=== PATIENT | male | born 1995 | race Two or more races ===

== ENCOUNTER 2022-05-23 14:58 | Emergency (ER) | payer MEDICAID, OTHER ==
[~2022-05-23] VITALS: Ht 170.2 cm; Wt 131.3 kg
[2022-05-23 16:17] VITALS: BP 120/64
[2022-05-23] MEDS ORDERED: KETOROLAC TROMETH 30 MG/ML 1ML VIAL IM ONE (16:45)
[2022-05-23] MEDS ORDERED: IBUP600T28 PO (16:46)
== END 2022-05-23 17:23 | disposition home or self-care (01) ==
LOC: ER 14:58
DX: S83.91XA Sprain of unspecified site of right knee, initial encounter (principal); Z79.1 Long term (current) use of non-steroidal anti-inflammatories (NSAID); X58.XXXA Exposure to other specified factors, initial encounter; Y93.89 Activity, other specified; Y92.89 Other specified places as the place of occurrence of the external cause; Y99.8 Other external cause status
CPT/HCPCS: 73562; 96372; 99283; J1885

== ENCOUNTER 2022-11-10 17:58 | Emergency (ER) | payer MEDICAID ==
[~2022-11-10 17:58] MED LIST: AMOX500T3 PO; IBUP1TAB5 PO
[2022-11-10] MEDS ORDERED: MECLIZINE HCL 25 MG TAB PO ONE (18:15)
[2022-11-10] MEDS ORDERED: SODIUM CHLORIDE 0.9% 1,000 ML IV ONE (18:30)
[2022-11-10 18:34] LABS: Basophils # (auto) 0.1 10 ^3/uL (0-0.2); Basophils % (auto) 0.8 % (0.0-2.0); Eosinophils # (auto) 0.1 10 ^3/uL (0-0.8); Eosinophils % (auto) 1.1 % (0.0-7.0); Hematocrit 45.8 % (41.0-53.0); Hemoglobin 15.7 g/dL (13.5-17.5); Lymphocytes # (auto) 1.3 10 ^3/uL (0.4-5.4); Lymphocytes % (auto) 9.7 % (10.0-50.0); Mean Corpuscular Hemoglobin 28.9 pg (28.0-32.0); Mean Corpuscular Hgb Conc. 34.4 g/dL (32.0-36.0); Mean Corpuscular Volume 84.1 fL (80.0-100.0); Monocytes # (auto) 0.7 10 ^3/uL (0-1.3); Monocytes % (auto) 4.8 % (0.0-12.0); Neutrophils # (auto) 11.6 10 ^3/uL (1.6-8.6); Neutrophils % (auto) 83.6 % (37.0-80.0); Nucleated Red Blood Cells % 0.2 %; Red Blood Cells 5.45 10^6/uL (4.5-5.90); Red Cell Distribution Width 13.1 % (11.8-14.3); White Blood Cell 13.9 10^3/uL (4.4-10.8)
[2022-11-10 19:02] LABS: Alanine Aminotransferase 44 U/L (7-40); Albumin 4.4 g/dL (3.2-4.8); Alkaline Phosphatase 96 U/L (46-116); Aspartate Aminotransferase 28 U/L (13-40); BUN/Creatinine Ratio 16.5 (10.0-20.0); Blood Urea Nitrogen 13 mg/dL (9-23); Glucose 229 mg/dL (74-106); Lipase 31 U/L (12-53)
[2022-11-10 19:03] LABS: Bilirubin, Total 0.9 mg/dL (0.2-1.0)
[2022-11-10 19:08] LABS: Chloride 98 mmol/L (98-107); Potassium 4.7 mmol/L (3.5-5.1); Sodium 131 mmol/L (136-145)
[2022-11-10 19:11] LABS: Anion Gap 9 (5-15)
[2022-11-10 19:12] LABS: Carbon Dioxide 24 mmol/L (20-30)
[2022-11-10 19:13] LABS: Calcium 9.3 mg/dL (8.7-10.4)
[2022-11-10 19:27] LABS: COVID19 ANTIGEN SOFIA FIA NEGATIVE (NEGATIVE); Rapid Influenza A Negative (Negative); Rapid Influenza B Negative (Negative)
[2022-11-10 19:32] LABS: Lactic Acid w/Reflex 2.2 mmol/L (0.4-2.0)
[2022-11-10 19:45] VITALS: PULSE 112; RESP 15; O2SAT 94
[2022-11-10 20:00] VITALS: TEMP 98.4
[2022-11-10] MEDS ORDERED: IOHEXOL 350 MG/ML 100ML IJ ONE (20:45)
[2022-11-10 23:03] LABS: Urine Bacteria NONE SEEN /hpf (None Seen); Urine Blood Negative /uL (Negative); Urine Clarity Clear (Clear); Urine Color Yellow (Yellow); Urine Mucus FEW (None Seen); Urine Protein, UAD 1+ (Negative); Urine Urobilinogen Normal (Negative); Urine WBC 1 /hpf (0 - 3); Urine pH 5.5 (5.0-8.0)
[2022-11-10 23:04] LABS: Urine Specific Gravity > 1.050 (1.001-1.035)
[2022-11-10 23:11] LABS: Amphetamine Screen, Urine Neg (NEGATIVE); Barbiturate Scree,Urine Neg (NEGATIVE); Benzodiazephine Screen, Urine Neg (NEGATIVE); Cannabinoid Screen, Urine Neg (NEGATIVE); Cocaine Screen, Urine Neg (NEGATIVE); Opiate Scree,Urine Neg (NEGATIVE); Phencyclidine Screen, Urine Neg (NEGATIVE)
[2022-11-11] MEDS ORDERED: LORA-622 PO (00:23)
[2022-11-11] MEDS ORDERED: MECL1TAB32 PO (00:23)
[2022-11-11] MEDS ORDERED: DOXY-286 PO (00:23)
[2022-11-11] MEDS ORDERED: DOXYCYCLINE 100 MG TAB/CAP PO ONE (00:30)
[2022-11-11 01:34] VITALS: BP 148/92; PULSE 91; RESP 12; O2SAT 96
== END 2022-11-11 01:42 | disposition home or self-care (01) ==
LOC: ER 17:58
DX: J32.9 Chronic sinusitis, unspecified (principal); R42 Dizziness and giddiness; Z79.1 Long term (current) use of non-steroidal anti-inflammatories (NSAID); Z79.2 Long term (current) use of antibiotics; Z79.899 Other long term (current) drug therapy; Z20.822 Contact with and (suspected) exposure to COVID-19
CPT/HCPCS: 36415; 70450; 71250; 71275; 74176; 80053; 80307; 81001; 83605; 83690; 83880; 84484; 85025; 85379; 87040; 87426; 87804; 93005; 96360; 99285; J7030; J8597; Q9967

== ENCOUNTER 2023-06-02 01:12 | Emergency (ER) | payer MEDICAID, OTHER ==
[~2023-06-02] VITALS: Ht 167.6 cm; Wt 120.0 kg
[~2023-06-02 01:12] MED LIST changes: +DOXY-286 PO; +LORA-622 PO; +MECL-90 PO
[2023-06-02 01:44] LABS: Basophils # (auto) 0.1 10 ^3/uL (0-0.2); Basophils % (auto) 0.9 % (0.0-2.0); Eosinophils # (auto) 0.1 10 ^3/uL (0-0.8); Hemoglobin 15.7 g/dL (13.5-17.5); Lymphocytes # (auto) 2.9 10 ^3/uL (0.4-5.4); Lymphocytes % (auto) 29.2 % (10.0-50.0); Mean Corpuscular Hemoglobin 28.8 pg (28.0-32.0); Mean Corpuscular Hgb Conc. 34.1 g/dL (32.0-36.0); Mean Corpuscular Volume 84.4 fL (80.0-100.0); Monocytes # (auto) 0.6 10 ^3/uL (0-1.3); Monocytes % (auto) 5.7 % (0.0-12.0); Neutrophils # (auto) 6.3 10 ^3/uL (1.6-8.6); Neutrophils % (auto) 63.2 % (37.0-80.0); Red Blood Cells 5.44 10^6/uL (4.5-5.90); Red Cell Distribution Width 13.1 % (11.8-14.3); White Blood Cell 9.9 10^3/uL (4.4-10.8)
[2023-06-02 01:58] LABS: Alanine Aminotransferase 37 U/L (7-40); Albumin 4.5 g/dL (3.2-4.8); Alkaline Phosphatase 83 U/L (46-116); Anion Gap 4 (5-15); Aspartate Aminotransferase 17 U/L (13-40); BUN/Creatinine Ratio 18.9 (10.0-20.0); Blood Urea Nitrogen 14 mg/dL (9-23); Calcium 9.6 mg/dL (8.7-10.4); Carbon Dioxide 28 mmol/L (20-30); Chloride 104 mmol/L (98-107); Glucose 190 mg/dL (74-106); Magnesium 1.8 mg/dL (1.6-2.6); Potassium 4.1 mmol/L (3.5-5.1); Sodium 136 mmol/L (136-145)
[2023-06-02 01:59] LABS: Bilirubin, Total 0.7 mg/dL (0.2-1.0); Total Protein 7.7 g/dL (5.7-8.2)
[2023-06-02 02:00] LABS: INR 1.07 (0.9-1.15); Prothrombin Time 11.2 sec (9.3-11.8)
[2023-06-02] MEDS: IBUPROFEN 800 MG TAB PO ONE (05:20)
[2023-06-02] MEDS: ACETAMINOPHEN 500 MG TAB PO ONE (05:21)
[2023-06-02 05:23] VITALS: BP 125/71; PULSE 74; RESP 19; TEMP 97.7; O2SAT 97
== END 2023-06-02 05:25 | disposition home or self-care (01) ==
LOC: ER 01:12 → EDBD 01:12 → ER 05:25
DX: R07.9 Chest pain, unspecified (principal); R55 Syncope and collapse; R51.9 Headache, unspecified; X58.XXXA Exposure to other specified factors, initial encounter; Y93.89 Activity, other specified; Y92.69 Other specified industrial and construction area as the place of occurrence of the external cause; Y99.8 Other external cause status
CPT/HCPCS: 36415; 70450; 71045; 80053; 83735; 83880; 84484; 85025; 85379; 85610; 85730; 93005

== ENCOUNTER 2024-05-08 15:01 | Emergency (ER) | payer MEDICAID, OTHER ==
[~2024-05-08] VITALS: Ht 167.6 cm; Wt 127.8 kg
[2024-05-08 15:43] VITALS: BP 136/81; PULSE 94; RESP 18; TEMP 99; O2SAT 96
--- NOTE | 2024-05-08 16:30 | DVH ---
EXAM: XY CHEST XRAY 1 VIEW HISTORY: r/o pna COMPARISON: XY CHEST PORTABLE on DOS: 06/02/23, XY CHEST PORTABLE on DOS: 09/04/22 TECHNIQUE: Portable AP view of the chest was performed. FINDINGS: No pneumothorax, consolidative infiltrates, or pulmonary edema. The heart is not enlarged. IMPRESSION: No acute intrathoracic process.
[2024-05-08] MEDS ORDERED: AZIT-43 PO (16:47)
[2024-05-08] MEDS ORDERED: BENZ100C97 PO (16:47)
[2024-05-08] MEDS ORDERED: PROM1SOL4 PO (16:47)
--- NOTE | 2024-05-08 16:47 | ED.PDOC ---
SOB-HPI HPI Comments 29 M w/ no hx presents for URI symptoms Not taking medications at this time Denies fevers chills night sweats unintentional weight loss Denies persistent chest pain, shortness of breath, leg swelling Denies history of asthma nor any breathing conditions Denies history of pneumonia Denies recent international travel Chief Complaint: Cough Time Seen by MD: 15:30 Primary Care Provider: FAMILY Reviewed notes: Nurses Notes, Medications, Allergies Information Source: Patient Mode of Arrival: Ambulatory Past Medical History PAST MEDICAL HISTORY: Denies Surgical History: Denies all surgeries Family History Family History: Reviewed,noncontributory to illness Social History Smoker: Non-Smoker Alcohol: Denies ETOH Use Drugs: Denies Drug Use Lives In: Home All Other Systems: Reviewed and Negative (Per HPI) Physical Exam General Appearance: No Apparent Distress, Normal HEENT: Normal ENT Inspection, Pharynx Normal, TMs Normal Neck: Full Range of Motion, Non-Tender, Normal, Normal Inspection Respiratory: Chest Non-Tender, Lungs Clear, No Accessory Muscle Use, No Respiratory Distress, Normal Breath Sounds Cardiovascular: No Murmur, No Gallop, Regular Rate/Rhythm Breast Exam: Deferred Gastrointestinal: No Organomegaly, Non Tender, No Pulsatile Mass, Normal Bowel Sounds, Soft Genitalia: Deferred Pelvic: Deferred Rectal: Deferred Extremities: No calf tenderness, Normal capillary refill, Normal inspection, Normal range of motion, Non-tender, No pedal edema Musculoskeletal : Apperance: Normal Neurologic: Alert, No Motor Deficits, Normal Affect, Normal Mood, No Sensory Deficits Cerebellar Function: Normal Reflexes: Normal Skin: Dry, Normal Color, Warm Lymphatic: No Adenopathy Was a procedure done? Was a procedure done?: No Differential Dx Differential Diagnosis: URI X-Ray, Labs, Meds, VS Vital Signs Date Time Temp Pulse Resp B/P (MAP) Pulse Ox O2 Delivery O2 Flow Rate FiO2 05/08/24 15:43 94 18 96 Room Air 05/08/24 15:43 99.0 94 18 136/81 (99) 96 99.0 05/08/24 15:10 99.0 94 18 136/81 (99) 96 99.0 PATIENT: JAZMIN BURGESS: [id number]: [id number] : 1995 LOC: ER ROOM / BED: / AGE / SEX: 29 / M ADM STATUS: REG ER SERVICE [id number] ORDERING PHYSICIAN: ALEENA MEDLEY NP PROCEDURE(s): CXR1 - CHEST XRAY 1 VIEW REASON: r/o pna ORDER NUMBER(s): [id number], ACCESSION NUMBER(s): [id number] EXAM: XY CHEST XRAY 1 VIEW HISTORY: r/o pna COMPARISON: XY CHEST PORTABLE on DOS: 06/02/23, XY CHEST PORTABLE on DOS: 09/04/22 TECHNIQUE: Portable AP view of the chest was performed. FINDINGS: No pneumothorax, consolidative infiltrates, or pulmonary edema. The heart is not enlarged. IMPRESSION: No acute intrathoracic process. ATED BY: VIVIENNE BEAVERS MD DICTATED DATE/TIME: 05/08/241626 SIGNED BY: VIVIENNE BEAVERS MD SIGNED DATE/TIME: 05/08/241626 X-Ray, Labs, Meds, VS Comment The patient is overall well-appearing nontoxic on exam. On physical exam, respirations even and unlabored, clear to auscultation bilaterally. Oxygen stable on room air. Did not have any focal lung findings and therefore chest x-ray was not indicated during this exam Low suspicion of strep pharyngitis given physical exam findings and patient's presenting symptoms No signs of meningismus on exam Overall, the patient is well hydrated and nontoxic. Plan for symptomatic control as needed. The patient was able to tolerate p.o. intake in the ED. at this time, patient is safe for discharge home. The exam findings and plan discussed. We will discharge home with PCP follow up and strict return precautions. Discussed that cough can linger up to 6 weeks after viral URI Supportive care and return precautions discussed Recommended vitamin C, rest, handwashing, and symptomatic care. Expect 2-week course with possibly of cough lingering up to 6 weeks. Nonpharmacological remedies for fluids has been recommended as well Time of 1ST Reevaluation: 16:30 Reevaluation 1ST: Improved Patient Education/Counseling: Diagnosis, Treatment Family Education/Counseling: Diagnosis, Treatment Departure 1 Departure Time of Disposition: 16:46 Impression: Primary Impression: Bronchitis Disposition: 01 HOME / SELF CARE / HOMELESS Condition: Stable e-Prescriptions Benzonatate (Benzonatate) 100 Mg Cap 1 CAP PO TID for 10 Days, #30 CAP 0 Refills Prov: ALEENA MEDLEY NP 05/08/24 Promethazine-Dm (Promethazine Dm 6.25-15 mg/5Ml) 1 Helene Helene 5 ML PO TID for 10 Days, #150 ML 0 Refills Prov: ALEENA MEDLEY NP 05/08/24 Azithromycin (Azithromycin) 250 Mg Tab 250 MG PO DAILY MDD 500 for 5 Days, #6 TAB 0 Refills 2 TABLETS ORALLY ON DAY ONE, THEN 1 TABLET ORALLY DAILY FOR 4 DAYS Prov: ALEENA MEDLEY NP 05/08/24 Critical Care Note Critical Care Time?: No Stability Stability form required: No Heart Score Heart Score: Heart Score Response (Comments) Value History N/A 0 EKG N/A 0 Age N/A 0 Risk Factors N/A 0 Troponin N/A 0 Total 0 ALEENA MEDLEY NP May 08, 2024 16:47
== END 2024-05-08 16:58 | disposition home or self-care (01) ==
LOC: ER 15:04
DX: J40 Bronchitis, not specified as acute or chronic (principal)
CPT/HCPCS: 71045

== ENCOUNTER 2024-08-05 19:15 | Emergency (ER) | payer MEDICAID ==
[~2024-08-05] VITALS: Ht 170.2 cm; Wt 126.1 kg
[~2024-08-05 19:15] MED LIST changes: +AZIT-43 PO; +BENZ100C97 PO; +PROM1SOL4 PO
[2024-08-05] MEDS ORDERED: CIPR1SUS8 RIGHT EAR (22:08)
[2024-08-05] MEDS ORDERED: AMOX875T4 PO (22:08)
[2024-08-05] MEDS ORDERED: IBUP-1456 PO (22:08)
--- NOTE | 2024-08-05 22:08 | ED.PDOC ---
Eye-HPI HPI Comments 29-year-old male presents to ER with complaints of right-sided earache pain x4 days. Patient reports he has been experiencing right-sided earache pain with associated decreased hearing from right ear x4 days. States that his symptoms started three days after he [place] a water park. He rates his current pain a 10/10 to right ear with radiation towards right side of jaw. Denies use of medications for current symptoms. Patient presents to ER ambulatory on arrival, with steady gait, in no distress, with vitals stable. Denies fever, ear drainage, skin changes, dizziness, nausea/vomiting, headache or any further symptoms/complaints Chief Complaint: Earache Time Seen by MD: 19:41 Primary Care Provider: FAMILY Reviewed Notes: Nurses Notes, Medications, Allergies Allergies: Coded Allergies: NO KNOWN ALLERGIES (Unverified , 05/23/22) Home Meds Active Scripts Ciprofloxacin-Dexamethasone (Ciprofloxacin/Dexamethaso 0.3-0.1 %) 1 Amber Amber, 4 D ROP RIGHT EAR BID for 7 Days, #1 BOTTLE 0 Refills Prov:KATHY MUNOZ 08/05/24 Ibuprofen (Ibuprofen) 800 Mg Tab, 1 TAB PO TID PRN, #30 TAB 0 Refills Prov:KATHY MUNOZ 08/05/24 Amoxicillin & Pot Clavulanate (Amoxicillin/Potassium Cla) 875 Mg Tab, 1 TAB PO BID for 7 Days, #14 TAB 0 Refills Prov:KATHY MUNOZ 08/05/24 Benzonatate (Benzonatate) 100 Mg Cap, 1 CAP PO TID for 10 Days, #30 CAP 0 Refills Prov:ALEENA MEDLEY NP 05/08/24 Promethazine-Dm (Promethazine Dm 6.25-15 mg/5Ml) 1 Helene Helene, 5 ML PO TID for 10 Days, #150 ML 0 Refills Prov:ALEENA MEDLEY NP 05/08/24 Azithromycin (Azithromycin) 250 Mg Tab, 250 MG PO DAILY MDD 500 for 5 Days, #6 TAB 0 Refills 2 TABLETS ORALLY ON DAY ONE, THEN 1 TABLET ORALLY DAILY FOR 4 DAYS Prov:ALEENA MEDLEY NP 05/08/24 Loratadine (Claritin) 10 Mg Tab, 1 TAB PO DAILY for 30 Days, #30 TAB 5 Refills Prov:DALE WHITE DO 11/11/22 Meclizine Hcl (Meclizine Hcl) 25 Mg Tab, 25 MG PO TIDPRN PRN for 10 Days, #30 TAB Prov:DALE WHITE S DO 11/11/22 Doxycycline Hyclate (DOXYCYCLINE HYCLATE) 100 Mg Tab, 1 TAB PO BID for 10 Days, #20 TAB Prov:DALE WHITE S DO 11/11/22 Amoxicillin Trihydrate (Amoxicillin) 500 Mg Tab, 1 TAB PO BID for 10 Days, #20 TAB Prov:EMETERIO BAUTISTA [facility] 09/04/22 Ibuprofen Micronized (Ibuprofen) 600 Mg Tab, 600 MG PO Q8HPRN PRN, #30 TAB 0 Refills Prov:ELLIS QUINTANA [facility] 05/23/22 Information Source: Patient Mode of Arrival: Ambulatory Past Medical History PAST MEDICAL HISTORY: Denies Surgical History: Denies all surgeries Family History Family History: Unknown Social History Smoker: Non-Smoker Alcohol: Denies ETOH Use Drugs: Denies Drug Use Lives In: Home Constitutional: denies: chills, diaphoresis, fatigue, fever, malaise, sweats, weakness, others EENTM: reports: others (As stated in HPI) Respiratory: denies: cough, hemoptysis, orthopnea, SOB at rest, shortness of breath, SOB with excertion, stridor, wheezing, others Cardiovascular: denies: chest pain, dizzy spells, diaphoresis, Dyspnea on exe rtion, edema, irregular heart beat, left arm pain, lightheadedness, palpitations, PND, syncope, others Gastrointestinal: denies: abdomen distended, abdominal pain, blood streaked bowels, constipated, diarrhea, dysphagia, difficulty swallowing, hematemesis, melena, nausea, poor appetite, poor fluid intake, rectal bleeding, rectal pain, vomiting, others Genitourinary: denies: burning, dysuria, flank pain, frequency, hematuria, incontinence, penile discharge, penile sore, pain, testicle pain, testicle swelling, urgency, others Neurological: denies: dizziness, fainting, headache, left sided numbness, left sided weakness, numbness, paresthesia, pre-existing deficit, right sided numbness, right sided weakness, seizure, speech problems, tingling, tremors, weakness, others Musculoskeletal: denies: back pain, gout, joint pain, joint swelling, muscle pain, muscle stiffness, neck pain, others Integumetry: denies: bruises, change in color, change in hair/nails, dryness, laceration, lesions, lumps, rash, wounds, others Allergic/Immunocompromised: denies: Difficulty Healing, Frequent Infections, Hives, Itching, others Hematologic/Lymphatic: denies: anemia, blood clots, easy bleeding, easy bruising, swollen glands, others Endocrine: denies: excessive hunger, excessive sweating, excessive thirst, excessive urination, flushing, intolerance to cold, intolerance to heat, unexplained weight gain, unexplained weight loss, others Psychiatric: denies: anxiety, bipolar disorder, depression, hopeless, panic disorder, schizophrenia, sleepless, suicidal, others Physical Exam General Appearance: No Apparent Distress HEENT: PERRL/EOMI, Pharynx Normal, Other (Mild swelling/erythema/yellow purulent drainage noted in right middle ear canal, unable to visualize right TM due to yellow purulent drainage, no TTP to right mastoid process noted, no skin changes to right ear noted, slight decreased whispered hearing noted to right ear. Ear exam on left-normal) Neck: Full Range of Motion, Non-Tender, Normal Respiratory: Chest Non-Tender, Lungs Clear, No Accessory Muscle Use, No Respiratory Distress, Normal Breath Sounds Cardiovascular: No Murmur, No Gallop, Regular Rate/Rhythm Breast Exam: Deferred Gastrointestinal: NOT DONE Genitalia: Deferred Pelvic: Deferred Rectal: Deferred Extremities: Normal capillary refill, Normal range of motion Neurologic: Alert, clinical rn liaison II-XII nml as Tested, No Motor Deficits, Normal Affect, Normal Mood, No Sensory Deficits Cerebellar Function: Normal Reflexes: Normal Skin: Dry, Normal Color, Warm Lymphatic: No Adenopathy Was a procedure done? Was a procedure done?: No Sedation Sedation?: No EENT DIFF Eye: N/A Ear: Abrasion, Cerumen Impaction, Foreign Body, Otitis Media, Perforation X-Ray, Labs, Meds, VS Vital Signs Date Time Temp Pulse Resp B/P (MAP) Pulse Ox O2 Delivery O2 Flow Rate FiO2 08/05/24 19:15 98.8 83 16 139/76 (97) 99 98.8 Current Medications Medications (Trade) Dose Ordered Sig/Abdirizak Route Start Time Stop Time Status Last Admin Ceftriaxone Sodium (Rocephin) 1,000 mg ONCE ONCE IM 08/05/24 22:15 08/05/24 22:16 DC 08/05/24 22:12 Ketorolac Tromethamine (Toradol Injection) 60 mg ONCE ONCE IM 08/05/24 22:15 08/05/24 22:16 DC 08/05/24 22:13 Rocephin 1 g IM ordered Toradol 60 mg IM ordered Advised to keep ear canal dry and avoid swimming for at least 7-10 days Advised to follow up with PCP in 1-2 days Patient verbalized understanding and agreeable with current plan of care Advised to return to ER immediately if symptoms worsen Time of 1ST Reevaluation: 21:44 Reevaluation 1ST: N/A Patient Education/Counseling: Diagnosis, Treatment, Prognosis, Need For Follow Up Family Education/Counseling: No Family Present SEPSIS Sepsis Screen Date sepsis recognized/suspect: Aug 05, 2024 Time Sepsis recognized/suspect: 1928 Recent Procedure: No On Antibiotic Therapy: No Respiratory Rate >20: No Heart Rate >90: No Temp<36 C (96.8 F) or >38.3 C: No SBP <90 or MAP <65 mmHG: No New Acute Mental Status Change: No Is the patient on CPAP, BIPAP,: No Vital Signs Date Time Temp Pulse Resp B/P (MAP) Pulse Ox O2 Delivery O2 Flow Rate FiO2 08/05/24 19:15 98.8 83 16 139/76 (97) 99 98.8 Medications Medications Dose Ordered Sig/Abdirizak Route Start Time Stop Time Status Last Admin Dose Admin Ceftriaxone Sodium 1,000 mg ONCE ONCE IM 08/05/24 22:15 08/05/24 22:16 DC 08/05/24 22:12 Ketorolac Tromethamine 60 mg ONCE ONCE IM 08/05/24 22:15 08/05/24 22:16 DC 08/05/24 22:13 Departure 1 Departure Time of Disposition: 22:02 Impression: Primary Impression: Otitis externa of right ear Qualified Codes: H60.501 - Unspecified acute noninfective otitis externa, right ear Disposition: HOME / SELF CARE / HOMELESS Condition: Stable e-Prescriptions Ciprofloxacin-Dexamethasone (Ciprofloxacin/Dexamethaso 0.3-0.1 %) 1 Amber Amber 4 DROP RIGHT EAR BID for 7 Days, #1 BOTTLE 0 Refills Prov: KATHY MUNOZ 08/05/24 Ibuprofen (Ibuprofen) 800 Mg Tab 1 TAB PO TID PRN, #30 TAB 0 Refills Prov: KATHY MUNOZ 08/05/24 Amoxicillin & Pot Clavulanate (Amoxicillin/Potassium Cla) 875 Mg Tab 1 TAB PO BID for 7 Days, #14 TAB 0 Refills Prov: KATHY MUNOZ 08/05/24 Discharged With: Self Critical Care Note Critical Care Time?: No Stability Stability form required: No Heart Score Heart Score: Heart Score Response (Comments) Value History N/A 0 EKG N/A 0 Age N/A 0 Risk Factors N/A 0 Troponin N/A 0 Total 0 KATHY MUNOZ Aug 05, 2024 22:08
[2024-08-05] MEDS: cefTRIAXone SOD 1,000 MG VL IM ONE (22:12)
[2024-08-05] MEDS: KETOROLAC TROMETH 60MG/2ML VIAL IM ONE (22:13)
[2024-08-05 22:50] VITALS: BP 146/79; PULSE 82; RESP 16; TEMP 98.4; O2SAT 97
== END 2024-08-05 22:56 | disposition home or self-care (01) ==
LOC: ER 19:15
DX: H60.91 Unspecified otitis externa, right ear (principal); Z79.899 Other long term (current) drug therapy
CPT/HCPCS: 96372; 99284; J0696; J1885